=== PATIENT | male | born 1955 | race Caucasian/White ===

== ENCOUNTER 2022-08-22 14:31 | Inpatient (IN) ==
[2022-08-22] MEDS ORDERED: Naloxone 0.4 MG/ML INJ IVP PRN (17:41)
[2022-08-22] MEDS ORDERED: Melatonin 3 MG TABLET PO PRN (17:41)
[2022-08-22] MEDS ORDERED: Ondansetron ODT 4 MG TAB.RAPDIS SL PRN (17:41)
[2022-08-22] MEDS ORDERED: Acetaminophen 325 MG TABLET PO PRN (17:59)
[2022-08-22] MEDS ORDERED: Iopamidol - 370 500 ML MLS IVP ONE (18:07)
[2022-08-22] MEDS ORDERED: *HR* Heparin 5,000 UNIT/ML VIAL IVP PRN ×2 (18:57)
[2022-08-22] MEDS: Furosemide 40 MG/4 ML VIAL IVP SCH (20:10)
[2022-08-22] MEDS: Heparin 25,000UNIT/250ML 1/2NS 25,000 UNIT/250 ML IV.SOLN IVC SCH (20:11)
[2022-08-22 20:51] LABS: Basophils % 0.5 %; Eosinophils % 0.5 %; Hematocrit 47.3 % (37.5-50.1); Hemoglobin 15.6 g/dL (12.9-16.9); Immature Granulocytes % 0.2 % (0-4); Lymphocytes # 1.5 K/mcL (0.6-4.6); Lymphocytes % 16.9 %; Mean Corpuscular Hemoglobin 29.8 pg (28.0-33.3); Mean Corpuscular Volume 90.3 fL (83.0-100.0); Mean Platelet Volume 10.8 fL (9.4-12.4); Monocytes # 1.3 K/mcL (0.0-1.3); Monocytes % 15.5 %; Neutrophils # 5.7 K/mcL (1.6-8.9); Platelet Count 187 K/mcL (140-400); Red Blood Count 5.24 M/mcL (4.19-5.50); Red Cell Distribution Width 13.6 % (11.5-14.5); Segmented Neutrophils % 66.4 %; White Blood Count 8.6 K/mcL (4.3-11.1)
[2022-08-22 21:00] LABS: Heparin anti-factor XA UFH 0.05 IU/mL (0.30-0.70)
[2022-08-22 21:01] LABS: INR 1.2; Prothrombin Time 13.7 Seconds (9.4-12.1)
[2022-08-23 05:03] LABS: Basophils # 0.1 K/mcL (0.0-0.2); Basophils % 0.7 %; Eosinophils # 0.1 K/mcL (0.0-0.6); Eosinophils % 1.1 %; Hematocrit 48.6 % (37.5-50.1); Hemoglobin 15.6 g/dL (12.9-16.9); Immature Granulocytes % 0.1 % (0-4); Lymphocytes # 1.1 K/mcL (0.6-4.6); Lymphocytes % 14.6 %; Mean Corpuscular HGB Conc 32.1 g/dL (31.6-35.5); Mean Corpuscular Hemoglobin 29.3 pg (28.0-33.3); Mean Corpuscular Volume 91.4 fL (83.0-100.0); Mean Platelet Volume 10.5 fL (9.4-12.4); Monocytes # 1.1 K/mcL (0.0-1.3); Monocytes % 15.8 %; Neutrophils # 4.9 K/mcL (1.6-8.9); Platelet Count 183 K/mcL (140-400); Red Blood Count 5.32 M/mcL (4.19-5.50); Red Cell Distribution Width 13.8 % (11.5-14.5); Segmented Neutrophils % 67.7 %; White Blood Count 7.2 K/mcL (4.3-11.1)
[2022-08-23 05:05] LABS: Estimated Average Glucose 120 mg/dl; Hemoglobin A1C 5.8 %
[2022-08-23 05:25] LABS: Calcium 9.2 mg/dL (8.6-10.3); Chol/HDL Ratio 2.8 (0-4.9); Potassium 3.8 mEq/L (3.5-5.1)
[2022-08-23] MEDS: Furosemide 40 MG/4 ML VIAL IVP SCH ×2 (07:53→16:43)
[2022-08-23] MEDS ORDERED: Furosemide 40 MG/4 ML VIAL IVP ONE (10:38)
[2022-08-23] MEDS: Aspirin Enteric Coated 81 MG Tablet PO SCH (10:59)
[2022-08-23] MEDS ORDERED: *HR* FentaNYL (PF) 100 MCG/2 ML VIAL ONE (13:35)
[2022-08-23] MEDS ORDERED: *HR* Heparin 10,000 UNIT/10 ML VIAL ONE ×2 (13:36→13:43)
[2022-08-23] MEDS ORDERED: 0.9 % Sodium Chloride 2,000 ML ONE (13:36)
[2022-08-23] MEDS ORDERED: Heparin 1,000 UNITS/500 mL 500 ML ONE (13:36)
[2022-08-23] MEDS ORDERED: Nitroglycerin 1,000 MCG/5 ML VIAL IV ONE (13:36)
[2022-08-23] MEDS ORDERED: Iopamidol - 370 200 ML INFUS..BTL ONE (13:36)
[2022-08-23] MEDS ORDERED: *HR* Midazolam HCl 2 MG/2 ML VIAL ONE (13:36)
[2022-08-23] MEDS: Heparin 25,000UNIT/250ML 1/2NS 25,000 UNIT/250 ML IV.SOLN IVC SCH (18:45)
[2022-08-23 19:10] LABS: ABG Base Excess 9 mEq/L (-2 to 3); ABG HCO3 35 mEq/L (21-27); ABG Oxygen Saturation 88 % (95-98); ABG PCO2 51 mmHg (35-45); ABG PH 7.45 pH Units (7.32-7.45); ABG PO2 54 mmHg (85-104); ABG TCO2 37 mEq/L (20-26)
[2022-08-24 03:36] LABS: Basophils # 0.1 K/mcL (0.0-0.2); Basophils % 0.9 %; Eosinophils # 0.1 K/mcL (0.0-0.6); Eosinophils % 1.2 %; Hemoglobin 15.3 g/dL (12.9-16.9); Immature Granulocytes % 0.3 % (0-4); Lymphocytes # 1.5 K/mcL (0.6-4.6); Lymphocytes % 21.9 %; Mean Corpuscular HGB Conc 32.6 g/dL (31.6-35.5); Mean Corpuscular Hemoglobin 29.8 pg (28.0-33.3); Mean Corpuscular Volume 91.6 fL (83.0-100.0); Mean Platelet Volume 10.1 fL (9.4-12.4); Monocytes # 1.2 K/mcL (0.0-1.3); Monocytes % 17.3 %; Platelet Count 176 K/mcL (140-400); Red Blood Count 5.13 M/mcL (4.19-5.50); Red Cell Distribution Width 13.8 % (11.5-14.5); Segmented Neutrophils % 58.4 %; White Blood Count 6.9 K/mcL (4.3-11.1)
[2022-08-24 04:14] LABS: Potassium 4.1 mEq/L (3.5-5.1)
[2022-08-24] MEDS ORDERED: Metoprolol XL (24 HR) Succ 25 MG TAB.ER.24H PO SCH (09:00)
[2022-08-24] MEDS: Aspirin Enteric Coated 81 MG Tablet PO SCH (09:23)
[2022-08-24] MEDS: Furosemide 40 MG/4 ML VIAL IVP SCH ×2 (09:24→18:59)
[2022-08-24] MEDS: Metoprolol XL (24 HR) Succ 25 MG TAB.ER.24H PO SCH (21:17)
[2022-08-25] MEDS: Heparin 25,000UNIT/250ML 1/2NS 25,000 UNIT/250 ML IV.SOLN IVC SCH ×2 (02:34→20:01)
[2022-08-25 03:38] LABS: Basophils # 0.1 K/mcL (0.0-0.2); Basophils % 0.7 %; Eosinophils # 0.1 K/mcL (0.0-0.6); Eosinophils % 1.9 %; Hematocrit 46.8 % (37.5-50.1); Immature Granulocytes % 0.3 % (0-4); Lymphocytes # 1.4 K/mcL (0.6-4.6); Lymphocytes % 20.3 %; Mean Corpuscular HGB Conc 32.1 g/dL (31.6-35.5); Mean Corpuscular Hemoglobin 29.7 pg (28.0-33.3); Mean Corpuscular Volume 92.7 fL (83.0-100.0); Mean Platelet Volume 10.9 fL (9.4-12.4); Monocytes # 1.3 K/mcL (0.0-1.3); Monocytes % 18.4 %; Platelet Count 179 K/mcL (140-400); Red Blood Count 5.05 M/mcL (4.19-5.50); Red Cell Distribution Width 13.7 % (11.5-14.5); Segmented Neutrophils % 58.4 %; White Blood Count 6.8 K/mcL (4.3-11.1)
[2022-08-25 04:00] LABS: Potassium 3.4 mEq/L (3.5-5.1)
[2022-08-25] MEDS: Metoprolol XL (24 HR) Succ 25 MG TAB.ER.24H PO SCH ×2 (08:54→20:00)
[2022-08-25] MEDS: Aspirin Enteric Coated 81 MG Tablet PO SCH (08:55)
[2022-08-25] MEDS: Nicotine 21 MG PATCH.TD24 TD SCH (08:57)
[2022-08-25] MEDS: Furosemide 40 MG/4 ML VIAL IVP SCH (08:57)
[2022-08-25] MEDS: Budesonide Neb 0.5 MG/2 ML IH SCH ×2 (11:34→20:24)
[2022-08-25] MEDS ORDERED: acetaZOLAMIDE 250 MG in Water for inj. (sterile) 2.5 ML IVP ONE (12:00)
[2022-08-26 01:24] LABS: Hematocrit 47.2 % (37.5-50.1); Hemoglobin 15.1 g/dL (12.9-16.9); Mean Corpuscular Hemoglobin 29.7 pg (28.0-33.3); Mean Corpuscular Volume 92.9 fL (83.0-100.0); Mean Platelet Volume 10.5 fL (9.4-12.4); Platelet Count 149 K/mcL (140-400); Red Blood Count 5.08 M/mcL (4.19-5.50); Red Cell Distribution Width 13.8 % (11.5-14.5); White Blood Count 6.3 K/mcL (4.3-11.1)
[2022-08-26 01:44] LABS: Calcium 8.9 mg/dL (8.6-10.3); Potassium 3.9 mEq/L (3.5-5.1)
[2022-08-26 02:09] LABS: Eosinophils # 0.3 K/mcL (0.0-0.6); Lymphocytes # 1.5 K/mcL (0.6-4.6); Monocytes # 0.8 K/mcL (0.0-1.3); Neutrophils # 3.8 K/mcL (1.6-8.9)
[2022-08-26 02:10] LABS: Platelet Estimate Normal (Normal)
[2022-08-26] MEDS ORDERED: acetaZOLAMIDE 250 MG in Water for inj. (sterile) 2.5 ML IVP ONE (09:24)
[2022-08-26] MEDS: Metoprolol XL (24 HR) Succ 25 MG TAB.ER.24H PO SCH ×2 (09:58→20:15)
[2022-08-26] MEDS: predniSONE 20 MG TABLET PO SCH (09:58)
[2022-08-26] MEDS: Aspirin Enteric Coated 81 MG Tablet PO SCH (09:58)
[2022-08-26] MEDS: Potassium Chloride Elixir 20 MEQ/15 ML UDC PO SCH (09:58)
[2022-08-26] MEDS: Nicotine 21 MG PATCH.TD24 TD SCH (09:58)
[2022-08-26] MEDS: Budesonide Neb 0.5 MG/2 ML IH SCH ×2 (10:32→22:43)
[2022-08-26] MEDS: Heparin 25,000UNIT/250ML 1/2NS 25,000 UNIT/250 ML IV.SOLN IVC SCH (17:16)
[2022-08-27 02:10] LABS: Basophils % 0.3 %; Eosinophils % 0.2 %; Hemoglobin 14.4 g/dL (12.9-16.9); Immature Granulocytes % 0.2 % (0-4); Lymphocytes # 0.9 K/mcL (0.6-4.6); Lymphocytes % 14.5 %; Mean Corpuscular HGB Conc 31.3 g/dL (31.6-35.5); Mean Corpuscular Hemoglobin 29.4 pg (28.0-33.3); Mean Corpuscular Volume 94.1 fL (83.0-100.0); Monocytes # 0.8 K/mcL (0.0-1.3); Neutrophils # 4.7 K/mcL (1.6-8.9); Platelet Count 155 K/mcL (140-400); Red Blood Count 4.89 M/mcL (4.19-5.50); Red Cell Distribution Width 13.4 % (11.5-14.5); Segmented Neutrophils % 72.8 %; White Blood Count 6.5 K/mcL (4.3-11.1)
[2022-08-27 02:29] LABS: Calcium 9.2 mg/dL (8.6-10.3); Potassium 4.1 mEq/L (3.5-5.1)
[2022-08-27] MEDS: Budesonide Neb 0.5 MG/2 ML IH SCH ×2 (07:31→22:57)
[2022-08-27] MEDS ORDERED: Lidocaine Viscous Oral Soln 15 ML SOLUTION MM PRN (09:35)
[2022-08-27] MEDS ORDERED: 0.9 % Sodium Chloride 500 ML IVC ONE (09:36)
[2022-08-27] MEDS: Potassium Chloride Elixir 20 MEQ/15 ML UDC PO SCH (09:40)
[2022-08-27] MEDS: *HR* Midazolam HCl 5 MG/5 ML VIAL IVP PRN ×2 (10:20→10:25)
[2022-08-27] MEDS: *HR* FentaNYL (PF) 100 MCG/2 ML VIAL IVP PRN ×2 (10:20→10:25)
[2022-08-27] MEDS: Aspirin Enteric Coated 81 MG Tablet PO SCH (11:43)
[2022-08-27] MEDS: predniSONE 20 MG TABLET PO SCH (11:44)
[2022-08-27] MEDS: Nicotine 21 MG PATCH.TD24 TD SCH (11:44)
[2022-08-27] MEDS: Metoprolol XL (24 HR) Succ 25 MG TAB.ER.24H PO SCH ×2 (11:49→16:58)
[2022-08-27] MEDS: Heparin 25,000UNIT/250ML 1/2NS 25,000 UNIT/250 ML IV.SOLN IVC SCH (11:51)
[2022-08-27] MEDS: Furosemide 20 MG/2 ML VIAL IVP SCH ×2 (11:54→16:59)
[2022-08-27 12:24] LABS: Chol/HDL Ratio 2.8 (0-4.9)
[2022-08-27 15:08] LABS: Bacteria,Urine Few per hpf (None-Few); Bilirubin,Urine Negative (Negative); Blood,Urine Negative (Negative); Clarity,Urine Turbid (Clear); Color,Urine Light-Yellow (Yellow); Glucose,Urine (UA) Normal (Normal); Ketones,Urine Negative (Negative); Leukocyte Esterase,Urine Trace (Negative); Mucus,Urine Few per lpf (None-Few); Nitrite,Urine Positive (Negative); Protein,Urine 30 mg/dL (Neg-Trace); RBC,Urine 0-3 per hpf (0-3); Specific Gravity,Urine 1.011 (1.010-1.025); Sperm,Urine Present per hpf (None Seen); Urobilinogen,Urine Normal (Normal)
[2022-08-27 17:20] LABS: INR 1.1; Prothrombin Time 12.5 Seconds (9.4-12.1)
[2022-08-27 17:22] LABS: Activated Partial Thrombo Time 74.2 Seconds (26.0-36.0)
[2022-08-27 17:33] LABS: Chol/HDL Ratio 2.8 (0-4.9)
[2022-08-27] MEDS: Chlorhexidine Rinse 15 ML MOUTHWASH MM SCH (20:35)
[2022-08-28 03:18] LABS: Basophils % 0.3 %; Hematocrit 44.4 % (37.5-50.1); Hemoglobin 14.1 g/dL (12.9-16.9); Immature Granulocytes % 0.3 % (0-4); Lymphocytes # 1.1 K/mcL (0.6-4.6); Lymphocytes % 15.1 %; Mean Corpuscular HGB Conc 31.8 g/dL (31.6-35.5); Mean Corpuscular Hemoglobin 29.5 pg (28.0-33.3); Mean Corpuscular Volume 92.9 fL (83.0-100.0); Mean Platelet Volume 11.1 fL (9.4-12.4); Monocytes # 0.8 K/mcL (0.0-1.3); Monocytes % 10.9 %; Neutrophils # 5.1 K/mcL (1.6-8.9); Platelet Count 143 K/mcL (140-400); Red Blood Count 4.78 M/mcL (4.19-5.50); Red Cell Distribution Width 13.7 % (11.5-14.5); Segmented Neutrophils % 73.4 %
[2022-08-28 03:26] LABS: Calcium 9.1 mg/dL (8.6-10.3); Magnesium 1.9 mg/dL (1.6-2.6); Potassium 3.9 mEq/L (3.5-5.1)
[2022-08-28] MEDS: Heparin 25,000UNIT/250ML 1/2NS 25,000 UNIT/250 ML IV.SOLN IVC SCH (05:44)
[2022-08-28] MEDS ORDERED: Aspirin 81 MG TAB.CHEW PO ONE ×2 (06:00→18:00)
[2022-08-28] MEDS ORDERED: *HR* Vasopressin 20 UNIT/ML VIAL ONE (06:46)
[2022-08-28] MEDS ORDERED: DOBUTamine 1,000 MG/250 ML BAG ONE (06:46)
[2022-08-28] MEDS ORDERED: NiCARdipine 2.5 MG/10 ML Syringe IVPB ONE (06:46)
[2022-08-28] MEDS: Aspirin Enteric Coated 81 MG Tablet PO SCH (09:34)
[2022-08-28] MEDS: Nicotine 21 MG PATCH.TD24 TD SCH (09:35)
[2022-08-28] MEDS: Potassium Chloride Elixir 20 MEQ/15 ML UDC PO SCH (09:37)
[2022-08-28] MEDS: Metoprolol XL (24 HR) Succ 25 MG TAB.ER.24H PO SCH ×2 (09:37→16:00)
[2022-08-28] MEDS: predniSONE 20 MG TABLET PO SCH (09:37)
[2022-08-28] MEDS: Chlorhexidine Rinse 15 ML MOUTHWASH MM SCH ×2 (09:41→20:26)
[2022-08-28] MEDS: Furosemide 20 MG/2 ML VIAL IVP SCH ×2 (09:41→16:00)
[2022-08-28] MEDS: Budesonide Neb 0.5 MG/2 ML IH SCH ×2 (10:18→19:55)
[2022-08-28] MEDS ORDERED: *HR* FentaNYL (PF) 1,000 MCG/20 ML VIAL ONE (11:26)
[2022-08-28] MEDS ORDERED: *HR* Propofol 200 MG/20 ML VIAL IVP ONE (11:26)
[2022-08-28] MEDS ORDERED: *HR* Midazolam HCl 5 MG/5 ML VIAL IVP ONE (11:26)
[2022-08-28] MEDS ORDERED: Tranexamic Acid 1,000 MG/10 ML VIAL ONE (11:28)
[2022-08-28] MEDS ORDERED: *HR* Rocuronium Bromide 50 MG/5 ML VIAL ONE ×3 (11:28→15:37)
[2022-08-28] MEDS ORDERED: Famotidine 20 MG/2 ML VIAL ONE (11:28)
[2022-08-28] MEDS ORDERED: Lidocaine 2% Syringe 100 MG/5 ML ONE (11:28)
[2022-08-28] MEDS ORDERED: *HR* Magnesium Sulfate 1 GM/2 ML VIAL ONE (11:28)
[2022-08-28] MEDS ORDERED: Heparin 15,000 UNIT in 0.9 % Sodium Chloride 500 ML IR ONE (11:30)
[2022-08-28] MEDS ORDERED: Norepinephrine 4 MG in 0.9 % Sodium Chloride 250 ML IVC PRN (11:30)
[2022-08-28] MEDS ORDERED: del Nido Cardioplegia Solution PF ONE ×2 (11:30)
[2022-08-28] MEDS ORDERED: Buckersberg's Blood Cardioplegia PF ONE (11:30)
[2022-08-28] MEDS ORDERED: Papaverine 60 MG/2 ML VIAL IVP ONE (11:41)
[2022-08-28] MEDS ORDERED: Dexmedetomidine HCl 400 MCG/100 ML MLS IVC ONE (12:35)
[2022-08-28 12:59] LABS: ABG Base Excess 3 mEq/L (-2 to 3); ABG Chloride 94 mEq/L (98-107); ABG Glucose 95 mg/dL (60-95); ABG HCO3 32 mEq/L (21-27); ABG Ionized Calcium 1.23 mmol/L (1.15-1.35); ABG Oxygen Saturation 100 % (95-98); ABG PCO2 63 mmHg (35-45); ABG PH 7.32 pH Units (7.32-7.45); ABG PO2 278 mmHg (85-104); ABG TCO2 34 mEq/L (20-26)
[2022-08-28] MEDS ORDERED: Lidocaine Jelly 11 ml Syringe ONE (13:01)
[2022-08-28] MEDS: CeFAZolin Syr 2,000MG/20 ML 2,000 MG/20 ML SYRINGE IVPB ONE ×2 (13:28→17:20)
[2022-08-28] MEDS ORDERED: Albumin Human 5% 12.5 GM/250 ML IV.SOLN ONE (13:39)
[2022-08-28] MEDS ORDERED: *HR* FentaNYL (PF) 250 MCG/5 ML VIAL ONE (14:26)
[2022-08-28] MEDS ORDERED: Calcium Gluconate 1gm/50mL 1 GM/50 ML BAG IVPB PRN (14:31)
[2022-08-28] MEDS ORDERED: Potassium Chloride 40 MEQ/200 ML BAG IVPB PRN (14:31)
[2022-08-28] MEDS ORDERED: Insulin Regular, Human 100 UNIT/ML IV PRN (14:31)
[2022-08-28] MEDS ORDERED: *HR* Dextrose 50 % in Water (Syg) 50 ML SYRINGE IVP PRN (14:31)
[2022-08-28] MEDS ORDERED: *HR* FentaNYL (PF) 100 MCG/2 ML VIAL IVP PRN (14:31)
[2022-08-28] MEDS ORDERED: Albuterol 2.5 MG/3 ML NEBULIZER IH PRN (14:31)
[2022-08-28] MEDS ORDERED: Ondansetron 4 MG/2 ML VIAL IVP PRN (14:31)
[2022-08-28 14:58] LABS: ABG Base Excess 5 mEq/L (-2 to 3); ABG Chloride 95 mEq/L (98-107); ABG Glucose 112 mg/dL (60-95); ABG HCO3 30 mEq/L (21-27); ABG Ionized Calcium 1.12 mmol/L (1.15-1.35); ABG Oxygen Saturation 99 % (95-98); ABG PCO2 44 mmHg (35-45); ABG PH 7.44 pH Units (7.32-7.45); ABG PO2 130 mmHg (85-104); ABG TCO2 31 mEq/L (20-26)
[2022-08-28] MEDS: Ipratropium/Albuterol Neb 3 ML IH SCH ×3 (15:29→23:47)
[2022-08-28 15:39] LABS: ABG Base Excess 5 mEq/L (-2 to 3); ABG Chloride 95 mEq/L (98-107); ABG Glucose 136 mg/dL (60-95); ABG HCO3 29 mEq/L (21-27); ABG Ionized Calcium 1.09 mmol/L (1.15-1.35); ABG Oxygen Saturation 100 % (95-98); ABG PCO2 43 mmHg (35-45); ABG PH 7.45 pH Units (7.32-7.45); ABG PO2 259 mmHg (85-104); ABG TCO2 31 mEq/L (20-26)
[2022-08-28 16:18] LABS: ABG Base Excess 4 mEq/L (-2 to 3); ABG Chloride 95 mEq/L (98-107); ABG Glucose 147 mg/dL (60-95); ABG HCO3 29 mEq/L (21-27); ABG Ionized Calcium 1.13 mmol/L (1.15-1.35); ABG Oxygen Saturation 100 % (95-98); ABG PCO2 42 mmHg (35-45); ABG PH 7.44 pH Units (7.32-7.45); ABG PO2 450 mmHg (85-104); ABG TCO2 30 mEq/L (20-26)
[2022-08-28] MEDS ORDERED: niCARdipine 20 MG/200 ML MLS IVC ONE (16:19)
[2022-08-28 16:50] LABS: ABG Base Excess 3 mEq/L (-2 to 3); ABG Chloride 94 mEq/L (98-107); ABG Glucose 158 mg/dL (60-95); ABG HCO3 29 mEq/L (21-27); ABG Oxygen Saturation 100 % (95-98); ABG PCO2 44 mmHg (35-45); ABG PH 7.42 pH Units (7.32-7.45); ABG PO2 476 mmHg (85-104); ABG TCO2 30 mEq/L (20-26)
[2022-08-28] MEDS ORDERED: Protamine Sulfate 250 MG/25 ML VIAL IVP ONE (16:51)
[2022-08-28] MEDS ORDERED: Protamine Sulfate 50 MG/5 ML VIAL IVP ONE (16:51)
[2022-08-28 17:33] LABS: ABG Base Excess 3 mEq/L (-2 to 3); ABG Chloride 96 mEq/L (98-107); ABG Glucose 159 mg/dL (60-95); ABG HCO3 27 mEq/L (21-27); ABG Ionized Calcium 1.19 mmol/L (1.15-1.35); ABG Oxygen Saturation 100 % (95-98); ABG PCO2 42 mmHg (35-45); ABG PH 7.42 pH Units (7.32-7.45); ABG PO2 432 mmHg (85-104); ABG TCO2 29 mEq/L (20-26)
[2022-08-28] MEDS: DOBUTamine 1,000 MG/250 ML BAG IVC SCH (18:03)
[2022-08-28 18:20] LABS: ABG Base Excess 4 mEq/L (-2 to 3); ABG HCO3 32 mEq/L (21-27); ABG Oxygen Saturation 97 % (95-98); ABG PCO2 58 mmHg (35-45); ABG PH 7.34 pH Units (7.32-7.45); ABG PO2 99 mmHg (85-104); ABG TCO2 33 mEq/L (20-26); Blood Gas Modality AF; Blood Gas VT 500 cc
[2022-08-28] MEDS: Albumin Human 5% 12.5 GM/250 ML IV.SOLN IVPB PRN ×2 (18:30→18:57)
[2022-08-28 18:35] LABS: Basophils % 0.3 %; Eosinophils % 0.1 %; Mean Corpuscular HGB Conc 31.9 g/dL (31.6-35.5)
[2022-08-28 18:37] LABS: Hematocrit 43.6 % (37.5-50.1); Hemoglobin 13.9 g/dL (12.9-16.9); Immature Granulocytes % 0.7 % (0-4); Immature Platelets 9.9 % (1.1-6.1); Lymphocytes # 0.9 K/mcL (0.6-4.6); Lymphocytes % 6.2 %; Mean Corpuscular Hemoglobin 29.6 pg (28.0-33.3); Mean Corpuscular Volume 92.8 fL (83.0-100.0); Mean Platelet Volume 10.7 fL (9.4-12.4); Monocytes # 0.7 K/mcL (0.0-1.3); Monocytes % 4.9 %; Neutrophils # 13.1 K/mcL (1.6-8.9); Platelet Count 104 K/mcL (140-400); Red Cell Distribution Width 13.4 % (11.5-14.5); Segmented Neutrophils % 87.8 %; White Blood Count 14.9 K/mcL (4.3-11.1)
[2022-08-28 18:43] LABS: INR 1.4; Prothrombin Time 16.1 Seconds (9.4-12.1)
[2022-08-28 18:46] LABS: BUN/Creatinine Ratio 17 (6-26); Blood Urea Nitrogen 15 mg/dL (8-23); Calcium 8.8 mg/dL (8.6-10.3); Carbon Dioxide 32 mEq/L (23-29); Chloride 96 mEq/L (98-107); Glucose 178 mg/dL (70-105); Magnesium 1.6 mg/dL (1.6-2.6); Osmolality,Calculated 285 (280-300); Potassium 3.1 mEq/L (3.5-5.1); Sodium 135 mEq/L (136-145)
[2022-08-28 18:48] LABS: Activated Partial Thrombo Time 31.5 Seconds (26.0-36.0)
[2022-08-28] MEDS: Dexmedetomidine HCl 400 MCG/100 ML MLS IVC SCH ×2 (19:00→21:22)
[2022-08-28] MEDS: Pantoprazole 40 MG VIAL IVP SCH (19:35)
[2022-08-28] MEDS: Norepinephrine 4 MG/254 ML IV.SOLN IVC SCH ×2 (19:35→23:42)
[2022-08-28] MEDS: niCARdipine 20 MG/200 ML MLS IVC SCH ×2 (19:35→21:35)
[2022-08-28] MEDS: FentaNYL (PF) 1,000 MCG/100 ML IV.SOLN IVC SCH (21:19)
[2022-08-28] MEDS: CeFAZolin 2 GM/120 ML BAG IVPB SCH (21:23)
[2022-08-28 23:09] LABS: ABG Base Excess 4 mEq/L (-2 to 3); ABG HCO3 33 mEq/L (21-27); ABG Oxygen Saturation 95 % (95-98); ABG PCO2 67 mmHg (35-45); ABG PO2 86 mmHg (85-104); ABG TCO2 35 mEq/L (20-26); Blood Gas Modality AF; Blood Gas VT 500 cc
[2022-08-29] MEDS: Dexmedetomidine HCl 400 MCG/100 ML MLS IVC SCH ×4 (00:26→08:54)
[2022-08-29] MEDS: Albumin Human 5% 12.5 GM/250 ML IV.SOLN IVPB PRN ×2 (02:06→03:16)
[2022-08-29 02:24] LABS: ABG Base Excess 3 mEq/L (-2 to 3); ABG HCO3 31 mEq/L (21-27); ABG Oxygen Saturation 96 % (95-98); ABG PCO2 56 mmHg (35-45); ABG PH 7.34 pH Units (7.32-7.45); ABG PO2 90 mmHg (85-104); ABG TCO2 32 mEq/L (20-26); Blood Gas Modality AF; Blood Gas VT 500 cc
[2022-08-29] MEDS: Ipratropium/Albuterol Neb 3 ML IH SCH ×6 (03:12→23:30)
[2022-08-29] MEDS: niCARdipine 20 MG/200 ML MLS IVC SCH ×5 (03:17→17:49)
[2022-08-29 04:15] LABS: Basophils % 0.1 %; Hemoglobin 12.7 g/dL (12.9-16.9); Red Cell Distribution Width 13.6 % (11.5-14.5)
[2022-08-29] MEDS: FentaNYL (PF) 1,000 MCG/100 ML IV.SOLN IVC SCH (04:16)
[2022-08-29 04:17] LABS: Hematocrit 38.8 % (37.5-50.1); Immature Granulocytes % 0.2 % (0-4); Immature Platelets 10.4 % (1.1-6.1); Lymphocytes # 0.6 K/mcL (0.6-4.6); Lymphocytes % 4.2 %; Mean Corpuscular HGB Conc 32.7 g/dL (31.6-35.5); Mean Corpuscular Volume 91.5 fL (83.0-100.0); Mean Platelet Volume 11.4 fL (9.4-12.4); Monocytes # 1.3 K/mcL (0.0-1.3); Monocytes % 9.7 %; Neutrophils # 11.7 K/mcL (1.6-8.9); Platelet Count 107 K/mcL (140-400); Red Blood Count 4.24 M/mcL (4.19-5.50); Segmented Neutrophils % 85.8 %; White Blood Count 13.6 K/mcL (4.3-11.1)
[2022-08-29 04:23] LABS: Heparin anti-factor XA UFH < 0.04 IU/mL (0.30-0.70); INR 1.1; Prothrombin Time 12.7 Seconds (9.4-12.1)
[2022-08-29 04:25] LABS: Activated Partial Thrombo Time 29.4 Seconds (26.0-36.0)
[2022-08-29 04:43] LABS: BUN/Creatinine Ratio 17 (6-26); Blood Urea Nitrogen 15 mg/dL (8-23); Calcium 8.7 mg/dL (8.6-10.3); Carbon Dioxide 30 mEq/L (23-29); Chloride 98 mEq/L (98-107); Glucose 143 mg/dL (70-105); Magnesium 1.7 mg/dL (1.6-2.6); Osmolality,Calculated 281 (280-300); Potassium 4.1 mEq/L (3.5-5.1); Sodium 134 mEq/L (136-145)
[2022-08-29] MEDS: CeFAZolin 2 GM/120 ML BAG IVPB SCH ×3 (05:28→21:02)
[2022-08-29 05:29] LABS: ABG Base Excess 4 mEq/L (-2 to 3); ABG HCO3 31 mEq/L (21-27); ABG Oxygen Saturation 97 % (95-98); ABG PCO2 54 mmHg (35-45); ABG PH 7.36 pH Units (7.32-7.45); ABG PO2 98 mmHg (85-104); ABG TCO2 32 mEq/L (20-26); Blood Gas Modality AF; Blood Gas VT 500 cc
[2022-08-29] MEDS: *HR* Enoxaparin 40 MG/0.4 ML SYRINGE SQ SCH (05:33)
[2022-08-29] MEDS: Metoprolol XL (24 HR) Succ 25 MG TAB.ER.24H PO SCH (07:16)
[2022-08-29] MEDS: Nicotine 21 MG PATCH.TD24 TD SCH (07:16)
[2022-08-29] MEDS: Budesonide Neb 0.5 MG/2 ML IH SCH ×2 (07:24→20:50)
[2022-08-29] MEDS: Potassium Chloride Elixir 20 MEQ/15 ML UDC PO SCH (08:03)
[2022-08-29] MEDS: Pantoprazole 40 MG VIAL IVP SCH (08:03)
[2022-08-29] MEDS: Chlorhexidine Rinse 15 ML MOUTHWASH MM SCH ×2 (08:03→21:00)
[2022-08-29] MEDS: Furosemide 20 MG/2 ML VIAL IVP SCH ×2 (08:04→15:27)
[2022-08-29] MEDS: *HR* OxyCODONE/APAP 5/325 TABLET PO PRN ×3 (08:04→21:04)
[2022-08-29] MEDS: predniSONE 20 MG TABLET PO SCH (08:04)
[2022-08-29] MEDS: Aspirin 81 MG TAB.CHEW PO SCH (08:05)
[2022-08-29] MEDS ORDERED: Docusate Oral Soln 100 MG/10 ML UDC GTUBE SCH (09:00)
[2022-08-29 10:19] LABS: ABG Base Excess 4 mEq/L (-2 to 3); ABG HCO3 32 mEq/L (21-27); ABG Oxygen Saturation 98 % (95-98); ABG PCO2 58 mmHg (35-45); ABG PH 7.35 pH Units (7.32-7.45); ABG PO2 106 mmHg (85-104); ABG TCO2 34 mEq/L (20-26); Blood Gas Modality CPAP/PS; Blood Gas Pressure Support 7 cm H2O
[2022-08-29 11:22] LABS: ABG Base Excess 4 mEq/L (-2 to 3); ABG HCO3 32 mEq/L (21-27); ABG Oxygen Saturation 93 % (95-98); ABG PCO2 59 mmHg (35-45); ABG PH 7.34 pH Units (7.32-7.45); ABG PO2 74 mmHg (85-104); ABG TCO2 34 mEq/L (20-26)
[2022-08-29] MEDS: Norepinephrine 4 MG/254 ML IV.SOLN IVC SCH ×2 (12:01→15:15)
[2022-08-29] MEDS ORDERED: Dextrose Gel 15 GM/37.5 ML TUBE PO PRN ×2 (14:33)
[2022-08-29] MEDS ORDERED: D5% in Water 1,000 ML IVC PRN (14:33)
[2022-08-29] MEDS ORDERED: *HR* Dextrose 50 % in Water (Syg) 50 ML SYRINGE IVP PRN (14:33)
[2022-08-29] MEDS: DOBUTamine 1,000 MG/250 ML BAG IVC SCH (16:21)
[2022-08-29] MEDS: Insulin LISPRO 300 UNITS/3 ML VIAL SUBQ SCH ×2 (16:21→21:00)
[2022-08-30] MEDS: Ipratropium/Albuterol Neb 3 ML IH SCH ×5 (04:20→20:56)
[2022-08-30] MEDS: *HR* OxyCODONE/APAP 5/325 TABLET PO PRN (05:00)
[2022-08-30] MEDS: CeFAZolin 2 GM/120 ML BAG IVPB SCH ×2 (05:20→13:19)
[2022-08-30] MEDS: *HR* Enoxaparin 40 MG/0.4 ML SYRINGE SQ SCH (05:20)
[2022-08-30] MEDS: niCARdipine 20 MG/200 ML MLS IVC SCH ×4 (05:26→19:45)
[2022-08-30 07:06] LABS: Potassium 4.2 mEq/L (3.5-5.1)
[2022-08-30 07:07] LABS: Calcium 8.7 mg/dL (8.6-10.3)
[2022-08-30] MEDS ORDERED: DilTIAZem 50 MG/50 ML IV.SOLN IVC SCH (07:30)
[2022-08-30 07:47] LABS: Mean Platelet Volume 12.2 fL (9.4-12.4)
[2022-08-30 07:49] LABS: Basophils % 0.2 %; Hemoglobin 12.3 g/dL (12.9-16.9); Immature Granulocytes % 0.5 % (0-4); Immature Platelets 11.4 % (1.1-6.1); Lymphocytes % 6.1 %; Mean Corpuscular HGB Conc 32.4 g/dL (31.6-35.5); Mean Corpuscular Hemoglobin 29.7 pg (28.0-33.3); Mean Corpuscular Volume 91.8 fL (83.0-100.0); Monocytes # 2.2 K/mcL (0.0-1.3); Monocytes % 13.5 %; Neutrophils # 12.8 K/mcL (1.6-8.9); Platelet Count 104 K/mcL (140-400); Red Blood Count 4.14 M/mcL (4.19-5.50); Segmented Neutrophils % 79.7 %
[2022-08-30] MEDS: Furosemide 20 MG/2 ML VIAL IVP SCH ×2 (08:08→17:48)
[2022-08-30] MEDS: Pantoprazole 40 MG VIAL IVP SCH (08:09)
[2022-08-30] MEDS: predniSONE 20 MG TABLET PO SCH (08:09)
[2022-08-30] MEDS: Chlorhexidine Rinse 15 ML MOUTHWASH MM SCH ×2 (08:09→19:56)
[2022-08-30] MEDS: Aspirin 81 MG TAB.CHEW PO SCH (08:09)
[2022-08-30] MEDS: Nicotine 21 MG PATCH.TD24 TD SCH (08:13)
[2022-08-30] MEDS: Insulin LISPRO 300 UNITS/3 ML VIAL SUBQ SCH ×4 (08:39→20:09)
[2022-08-30] MEDS ORDERED: *HR* Metoprolol 5 MG/5 ML VIAL IVP ONE (09:19)
[2022-08-30] MEDS ORDERED: Amiodarone Premix 150 MG/100 ML BAG IVPB ONE ×2 (09:22→09:24)
[2022-08-30] MEDS ORDERED: Amiodarone Premix 360 MG/200 ML BAG IVC ONE ×2 (09:22→09:24)
[2022-08-30] MEDS: Budesonide Neb 0.5 MG/2 ML IH SCH ×2 (11:21→20:56)
[2022-08-30] MEDS ORDERED: Albumin Human 5% 12.5 GM/250 ML IV.SOLN IVPB ONE ×2 (15:13→18:33)
[2022-08-30] MEDS ORDERED: Albumin Human 5% 12.5 GM/250 ML IV.SOLN ONE (15:13)
[2022-08-30] MEDS: Amiodarone Premix 360 MG/200 ML BAG IVC SCH (15:22)
[2022-08-30] MEDS: DOBUTamine 1,000 MG/250 ML BAG IVC SCH (18:34)
[2022-08-30] MEDS: Norepinephrine 4 MG/254 ML IV.SOLN IVC SCH (19:44)
[2022-08-30] MEDS: Metoprolol XL (24 HR) Succ 25 MG TAB.ER.24H PO SCH (19:56)
[2022-08-31] MEDS: Ipratropium/Albuterol Neb 3 ML IH SCH ×6 (00:12→19:50)
[2022-08-31] MEDS: Budesonide Neb 0.5 MG/2 ML IH SCH ×4 (00:14→19:50)
[2022-08-31] MEDS: Norepinephrine 4 MG/254 ML IV.SOLN IVC SCH (01:49)
[2022-08-31] MEDS: Amiodarone Premix 360 MG/200 ML BAG IVC SCH ×3 (01:50→23:36)
[2022-08-31] MEDS: niCARdipine 20 MG/200 ML MLS IVC SCH ×2 (03:35→06:46)
[2022-08-31 04:18] LABS: Basophils % 0.1 %; Hematocrit 36.4 % (37.5-50.1); Hemoglobin 11.4 g/dL (12.9-16.9); Immature Granulocytes % 0.8 % (0-4); Immature Platelets 13.9 % (1.1-6.1); Lymphocytes # 0.7 K/mcL (0.6-4.6); Lymphocytes % 3.8 %; Mean Corpuscular HGB Conc 31.3 g/dL (31.6-35.5); Mean Corpuscular Hemoglobin 29.9 pg (28.0-33.3); Mean Corpuscular Volume 95.5 fL (83.0-100.0); Mean Platelet Volume 11.8 fL (9.4-12.4); Monocytes # 1.9 K/mcL (0.0-1.3); Monocytes % 10.3 %; Neutrophils # 15.7 K/mcL (1.6-8.9); Platelet Count 98 K/mcL (140-400); Red Blood Count 3.81 M/mcL (4.19-5.50); Red Cell Distribution Width 14.3 % (11.5-14.5); White Blood Count 18.5 K/mcL (4.3-11.1)
[2022-08-31 04:27] LABS: Calcium 9.4 mg/dL (8.6-10.3); Magnesium 2.1 mg/dL (1.6-2.6); Potassium 4.5 mEq/L (3.5-5.1)
[2022-08-31] MEDS: *HR* Enoxaparin 40 MG/0.4 ML SYRINGE SQ SCH (06:46)
[2022-08-31] MEDS: Insulin LISPRO 300 UNITS/3 ML VIAL SUBQ SCH ×4 (08:24→21:13)
[2022-08-31] MEDS: Aspirin 81 MG TAB.CHEW PO SCH (08:38)
[2022-08-31] MEDS: Chlorhexidine Rinse 15 ML MOUTHWASH MM SCH ×2 (08:38→20:05)
[2022-08-31] MEDS: predniSONE 20 MG TABLET PO SCH (08:38)
[2022-08-31] MEDS: Nicotine 21 MG PATCH.TD24 TD SCH (08:39)
[2022-08-31] MEDS: Pantoprazole 40 MG VIAL IVP SCH (08:39)
[2022-08-31] MEDS: Furosemide 20 MG/2 ML VIAL IVP SCH ×2 (08:39→17:39)
[2022-08-31] MEDS: Metoprolol XL (24 HR) Succ 25 MG TAB.ER.24H PO SCH ×2 (08:39→20:05)
[2022-08-31] MEDS ORDERED: Acetaminophen 325 MG TABLET PO PRN (09:39)
[2022-08-31] MEDS ORDERED: Potassium Chloride 40 MEQ/200 ML BAG IVPB PRN (09:39)
[2022-08-31] MEDS ORDERED: Naloxone 0.4 MG/ML INJ IVP PRN (09:39)
[2022-08-31] MEDS ORDERED: Albuterol 2.5 MG/3 ML NEBULIZER IH PRN (09:39)
[2022-08-31] MEDS ORDERED: D5% in Water 1,000 ML IVC PRN (09:39)
[2022-08-31] MEDS ORDERED: Ondansetron 4 MG/2 ML VIAL IVP PRN (09:39)
[2022-08-31] MEDS ORDERED: Melatonin 3 MG TABLET PO PRN (09:39)
[2022-08-31] MEDS ORDERED: *HR* Dextrose 50 % in Water (Syg) 50 ML SYRINGE IVP PRN (09:39)
[2022-08-31] MEDS ORDERED: Dextrose Gel 15 GM/37.5 ML TUBE PO PRN ×2 (09:39)
[2022-09-01] MEDS: Ipratropium/Albuterol Neb 3 ML IH SCH ×6 (00:06→19:59)
[2022-09-01 03:31] LABS: Calcium 9.8 mg/dL (8.6-10.3); Magnesium 2.2 mg/dL (1.6-2.6); Potassium 4.6 mEq/L (3.5-5.1)
[2022-09-01] MEDS: *HR* Enoxaparin 40 MG/0.4 ML SYRINGE SQ SCH (06:14)
[2022-09-01] MEDS: Insulin LISPRO 300 UNITS/3 ML VIAL SUBQ SCH ×4 (07:24→20:13)
[2022-09-01] MEDS: Budesonide Neb 0.5 MG/2 ML IH SCH ×2 (07:45→19:58)
[2022-09-01] MEDS: Furosemide 20 MG/2 ML VIAL IVP SCH (08:24)
[2022-09-01] MEDS: Chlorhexidine Rinse 15 ML MOUTHWASH MM SCH ×2 (08:25→20:14)
[2022-09-01] MEDS: predniSONE 20 MG TABLET PO SCH (08:25)
[2022-09-01] MEDS: Aspirin 81 MG TAB.CHEW PO SCH (08:25)
[2022-09-01] MEDS: Metoprolol XL (24 HR) Succ 25 MG TAB.ER.24H PO SCH (08:25)
[2022-09-01] MEDS: Nicotine 21 MG PATCH.TD24 TD SCH (08:26)
[2022-09-01 08:44] LABS: Basophils % 0.1 %; Eosinophils % 0.1 %; Hematocrit 36.9 % (37.5-50.1); Hemoglobin 12.1 g/dL (12.9-16.9); Immature Granulocytes % 0.4 % (0-4); Lymphocytes % 6.2 %; Mean Corpuscular HGB Conc 32.8 g/dL (31.6-35.5); Mean Corpuscular Volume 91.3 fL (83.0-100.0); Mean Platelet Volume 10.6 fL (9.4-12.4); Monocytes # 2.1 K/mcL (0.0-1.3); Monocytes % 12.3 %; Neutrophils # 13.6 K/mcL (1.6-8.9); Platelet Count 178 K/mcL (140-400); Red Blood Count 4.04 M/mcL (4.19-5.50); Red Cell Distribution Width 14.1 % (11.5-14.5); Segmented Neutrophils % 80.9 %; White Blood Count 16.9 K/mcL (4.3-11.1)
[2022-09-01] MEDS ORDERED: *HR* Amiodarone 200 MG TABLET PO SCH ×2 (09:00→21:00)
[2022-09-01] MEDS: Metoprolol XL (24 HR) Succ 50 MG TAB.ER.24H PO SCH ×2 (12:33→20:13)
[2022-09-01] MEDS: *HR* Amiodarone 200 MG TABLET PO SCH ×2 (12:58→20:13)
[2022-09-01 19:06] LABS: Bilirubin,Urine Negative (Negative); Blood,Urine Small (Negative); Clarity,Urine Clear (Clear); Color,Urine Light-Yellow (Yellow); Glucose,Urine (UA) Normal (Normal); Hyaline Casts,Urine Few per lpf (None Seen); Ketones,Urine Negative (Negative); Leukocyte Esterase,Urine Negative (Negative); Mucus,Urine Few per lpf (None-Few); Nitrite,Urine Negative (Negative); Protein,Urine Trace mg/dL (Neg-Trace); RBC,Urine 0-3 per hpf (0-3); Specific Gravity,Urine 1.017 (1.010-1.025); Urobilinogen,Urine Normal (Normal); WBC,Urine 0-3 per hpf (0-3)
[2022-09-01 19:15] LABS: Sodium, Urine < 10.0 mEq/L
[2022-09-02] MEDS: Ipratropium/Albuterol Neb 3 ML IH SCH ×7 (00:17→23:35)
[2022-09-02 01:14] LABS: Basophils % 0.1 %; Hematocrit 35.3 % (37.5-50.1); Hemoglobin 11.5 g/dL (12.9-16.9); Immature Granulocytes % 0.4 % (0-4); Lymphocytes # 0.8 K/mcL (0.6-4.6); Mean Corpuscular HGB Conc 32.6 g/dL (31.6-35.5); Mean Corpuscular Hemoglobin 29.6 pg (28.0-33.3); Mean Platelet Volume 10.5 fL (9.4-12.4); Monocytes # 1.5 K/mcL (0.0-1.3); Monocytes % 11.4 %; Neutrophils # 10.6 K/mcL (1.6-8.9); Platelet Count 196 K/mcL (140-400); Red Blood Count 3.88 M/mcL (4.19-5.50); Segmented Neutrophils % 82.1 %; White Blood Count 12.9 K/mcL (4.3-11.1)
[2022-09-02 01:33] LABS: Calcium 9.7 mg/dL (8.6-10.3); Magnesium 2.1 mg/dL (1.6-2.6); Potassium 4.8 mEq/L (3.5-5.1)
[2022-09-02] MEDS: *HR* Enoxaparin 40 MG/0.4 ML SYRINGE SQ SCH (04:39)
[2022-09-02] MEDS: Budesonide Neb 0.5 MG/2 ML IH SCH ×2 (07:45→20:16)
[2022-09-02] MEDS: Aspirin 81 MG TAB.CHEW PO SCH (07:54)
[2022-09-02] MEDS: Chlorhexidine Rinse 15 ML MOUTHWASH MM SCH ×2 (07:54→20:59)
[2022-09-02] MEDS: predniSONE 20 MG TABLET PO SCH (07:54)
[2022-09-02] MEDS: Metoprolol XL (24 HR) Succ 50 MG TAB.ER.24H PO SCH ×2 (07:54→20:56)
[2022-09-02] MEDS: Nicotine 21 MG PATCH.TD24 TD SCH (07:54)
[2022-09-02] MEDS: *HR* Amiodarone 200 MG TABLET PO SCH ×2 (07:54→20:56)
[2022-09-02] MEDS: Insulin LISPRO 300 UNITS/3 ML VIAL SUBQ SCH ×4 (07:55→20:57)
[2022-09-02] MEDS ORDERED: Metoprolol XL (24 HR) Succ 25 MG TAB.ER.24H PO ONE (11:45)
[2022-09-02 12:59] LABS: Phosphorous 3.7 mg/dL (2.7-4.5); Uric Acid 9.1 mg/dL (2.3-7.6)
[2022-09-02] MEDS ORDERED: Warfarin perPT PO PRN (13:08)
[2022-09-02] MEDS ORDERED: Heparin 25,000UNIT/250ML 1/2NS 25,000 UNIT/250 ML IV.SOLN IVC SCH (13:15)
[2022-09-02] MEDS ORDERED: *HR* Heparin 5,000 UNIT/ML VIAL IVP PRN ×2 (13:19)
[2022-09-02 13:24] LABS: Hemoglobin 11.3 g/dL (12.9-16.9); Mean Corpuscular HGB Conc 32.3 g/dL (31.6-35.5); Mean Corpuscular Hemoglobin 29.5 pg (28.0-33.3); Mean Corpuscular Volume 91.4 fL (83.0-100.0); Mean Platelet Volume 10.1 fL (9.4-12.4); Platelet Count 205 K/mcL (140-400); Red Blood Count 3.83 M/mcL (4.19-5.50); White Blood Count 10.4 K/mcL (4.3-11.1)
[2022-09-02 13:39] LABS: Heparin anti-factor XA UFH < 0.04 IU/mL (0.30-0.70); INR 1.2; Prothrombin Time 12.9 Seconds (9.4-12.1)
[2022-09-02 13:43] LABS: Protein/Creatinine Ratio,Urine 0.3 mg/mg (0.00-0.20)
[2022-09-02] MEDS: Heparin 25,000UNIT/250ML 1/2NS 25,000 UNIT/250 ML IV.SOLN IVC SCH (14:07)
[2022-09-02] MEDS ORDERED: *HR* Metoprolol 5 MG/5 ML VIAL IVP PRN (15:08)
[2022-09-02] MEDS ORDERED: *HR* Warfarin 5 MG TABLET PO ONE (18:00)
[2022-09-02] MEDS ORDERED: *HR* Metoprolol 5 MG/5 ML VIAL IVP ONE (23:23)
[2022-09-03 03:19] LABS: Basophils % 0.3 %; Eosinophils % 0.1 %; Hematocrit 38.1 % (37.5-50.1); Hemoglobin 12.2 g/dL (12.9-16.9); Immature Granulocytes % 0.7 % (0-4); Lymphocytes # 1.3 K/mcL (0.6-4.6); Lymphocytes % 11.2 %; Mean Corpuscular Hemoglobin 29.5 pg (28.0-33.3); Mean Corpuscular Volume 92.3 fL (83.0-100.0); Mean Platelet Volume 10.6 fL (9.4-12.4); Monocytes # 1.7 K/mcL (0.0-1.3); Monocytes % 13.8 %; Neutrophils # 8.8 K/mcL (1.6-8.9); Platelet Count 261 K/mcL (140-400); Red Blood Count 4.13 M/mcL (4.19-5.50); Red Cell Distribution Width 13.9 % (11.5-14.5); Segmented Neutrophils % 73.9 %
[2022-09-03 03:37] LABS: Albumin 3.6 g/dL (3.5-5.7); Calcium 9.7 mg/dL (8.6-10.3); Magnesium 2.1 mg/dL (1.6-2.6); Phosphorous 4.3 mg/dL (2.7-4.5); Potassium 4.9 mEq/L (3.5-5.1)
[2022-09-03] MEDS: Ipratropium/Albuterol Neb 3 ML IH SCH ×6 (04:06→23:44)
[2022-09-03] MEDS: Heparin 25,000UNIT/250ML 1/2NS 25,000 UNIT/250 ML IV.SOLN IVC SCH ×2 (04:40→18:34)
[2022-09-03] MEDS: Budesonide Neb 0.5 MG/2 ML IH SCH ×2 (07:21→20:22)
[2022-09-03] MEDS: 3% Sodium Chloride Inhalation 4 ML VIAL.NEB IH SCH ×4 (07:23→20:22)
[2022-09-03] MEDS: Metoprolol XL (24 HR) Succ 50 MG TAB.ER.24H PO SCH ×2 (07:51→19:45)
[2022-09-03] MEDS: Aspirin 81 MG TAB.CHEW PO SCH (07:51)
[2022-09-03] MEDS: predniSONE 20 MG TABLET PO SCH (07:51)
[2022-09-03] MEDS: *HR* Amiodarone 200 MG TABLET PO SCH ×2 (07:52→19:46)
[2022-09-03] MEDS: Nicotine 21 MG PATCH.TD24 TD SCH (07:53)
[2022-09-03] MEDS: Insulin LISPRO 300 UNITS/3 ML VIAL SUBQ SCH (07:54)
[2022-09-03] MEDS: Chlorhexidine Rinse 15 ML MOUTHWASH MM SCH ×2 (07:55→19:46)
[2022-09-03 10:22] LABS: INR 1.4; Prothrombin Time 15.5 Seconds (9.4-12.1)
[2022-09-03] MEDS ORDERED: Metoprolol XL (24 HR) Succ 25 MG TAB.ER.24H PO ONE (11:31)
[2022-09-03] MEDS: *HR* OxyCODONE/APAP 5/325 TABLET PO PRN ×2 (12:29→19:46)
[2022-09-03] MEDS ORDERED: *HR* Warfarin 5 MG TABLET PO ONE (18:00)
[2022-09-04 02:03] LABS: Basophils % 0.3 %; Eosinophils % 0.3 %; Hematocrit 37.1 % (37.5-50.1); Hemoglobin 11.9 g/dL (12.9-16.9); Immature Granulocytes % 1.1 % (0-4); Lymphocytes # 1.3 K/mcL (0.6-4.6); Lymphocytes % 12.5 %; Mean Corpuscular HGB Conc 32.1 g/dL (31.6-35.5); Mean Corpuscular Hemoglobin 29.3 pg (28.0-33.3); Mean Corpuscular Volume 91.4 fL (83.0-100.0); Mean Platelet Volume 10.1 fL (9.4-12.4); Monocytes # 1.6 K/mcL (0.0-1.3); Monocytes % 14.6 %; Neutrophils # 7.6 K/mcL (1.6-8.9); Platelet Count 281 K/mcL (140-400); Red Blood Count 4.06 M/mcL (4.19-5.50); Red Cell Distribution Width 13.9 % (11.5-14.5); Segmented Neutrophils % 71.2 %; White Blood Count 10.7 K/mcL (4.3-11.1)
[2022-09-04 02:12] LABS: INR 1.7; Prothrombin Time 18.6 Seconds (9.4-12.1)
[2022-09-04 02:23] LABS: Calcium 9.6 mg/dL (8.6-10.3); Potassium 4.9 mEq/L (3.5-5.1)
[2022-09-04] MEDS: 3% Sodium Chloride Inhalation 4 ML VIAL.NEB IH SCH ×4 (03:51→20:01)
[2022-09-04] MEDS: Ipratropium/Albuterol Neb 3 ML IH SCH ×6 (03:52→23:19)
[2022-09-04] MEDS: *HR* Amiodarone 200 MG TABLET PO SCH ×2 (09:46→20:08)
[2022-09-04] MEDS: predniSONE 20 MG TABLET PO SCH (09:46)
[2022-09-04] MEDS: Aspirin 81 MG TAB.CHEW PO SCH (09:46)
[2022-09-04] MEDS: Metoprolol XL (24 HR) Succ 50 MG TAB.ER.24H PO SCH ×2 (09:47→20:08)
[2022-09-04] MEDS: Chlorhexidine Rinse 15 ML MOUTHWASH MM SCH ×2 (11:16→20:30)
[2022-09-04] MEDS: Nicotine 21 MG PATCH.TD24 TD SCH (11:16)
[2022-09-04] MEDS: Budesonide Neb 0.5 MG/2 ML IH SCH ×2 (11:42→20:02)
[2022-09-04 13:40] LABS: Heparin anti-factor XA UFH < 0.04 IU/mL (0.30-0.70); INR 2.3; Prothrombin Time 25.1 Seconds (9.4-12.1)
[2022-09-04] MEDS: Heparin 25,000UNIT/250ML 1/2NS 25,000 UNIT/250 ML IV.SOLN IVC SCH (14:30)
[2022-09-04] MEDS ORDERED: Orphenadrine 60 MG/2 ML VIAL IVP PRN (17:15)
[2022-09-04] MEDS ORDERED: *HR* Warfarin 5 MG TABLET PO ONE (18:00)
[2022-09-04] MEDS: *HR* OxyCODONE/APAP 5/325 TABLET PO PRN (22:51)
[2022-09-05 03:47] LABS: Basophils % 0.4 %; Eosinophils % 0.2 %; Hematocrit 36.3 % (37.5-50.1); Hemoglobin 11.7 g/dL (12.9-16.9); Immature Granulocytes % 1.1 % (0-4); Lymphocytes # 1.3 K/mcL (0.6-4.6); Lymphocytes % 11.1 %; Mean Corpuscular HGB Conc 32.2 g/dL (31.6-35.5); Mean Corpuscular Hemoglobin 29.3 pg (28.0-33.3); Mean Platelet Volume 10.5 fL (9.4-12.4); Monocytes # 1.3 K/mcL (0.0-1.3); Neutrophils # 8.6 K/mcL (1.6-8.9); Platelet Count 300 K/mcL (140-400); Red Blood Count 3.99 M/mcL (4.19-5.50); Red Cell Distribution Width 13.5 % (11.5-14.5); Segmented Neutrophils % 76.2 %; White Blood Count 11.3 K/mcL (4.3-11.1)
[2022-09-05 03:50] LABS: Heparin anti-factor XA UFH 0.74 IU/mL (0.30-0.70); INR 3.1
[2022-09-05 04:05] LABS: Magnesium 1.9 mg/dL (1.6-2.6); Potassium 4.9 mEq/L (3.5-5.1)
[2022-09-05] MEDS: Heparin 25,000UNIT/250ML 1/2NS 25,000 UNIT/250 ML IV.SOLN IVC SCH (04:14)
[2022-09-05] MEDS: 3% Sodium Chloride Inhalation 4 ML VIAL.NEB IH SCH ×2 (04:28→11:27)
[2022-09-05] MEDS: Ipratropium/Albuterol Neb 3 ML IH SCH ×3 (04:28→11:27)
[2022-09-05] MEDS: Budesonide Neb 0.5 MG/2 ML IH SCH (07:32)
[2022-09-05 07:37] VITALS: BP 132/69; TEMP 98.2
[2022-09-05] MEDS: *HR* Amiodarone 200 MG TABLET PO SCH (08:07)
[2022-09-05] MEDS: Metoprolol XL (24 HR) Succ 50 MG TAB.ER.24H PO SCH (08:07)
[2022-09-05] MEDS: Aspirin 81 MG TAB.CHEW PO SCH (08:08)
[2022-09-05] MEDS: Chlorhexidine Rinse 15 ML MOUTHWASH MM SCH (08:08)
[2022-09-05] MEDS: Nicotine 21 MG PATCH.TD24 TD SCH (08:08)
[2022-09-05] MEDS: predniSONE 20 MG TABLET PO SCH (08:08)
[2022-09-05 09:38] VITALS: O2SAT 94
[2022-09-05 11:25] VITALS: PULSE 102
[2022-09-05] MEDS: *HR* OxyCODONE/APAP 5/325 TABLET PO PRN (12:57)
[2022-09-06] MEDS ORDERED: predniSONE 10 MG TABLET PO SCH (09:00)
== END 2022-09-05 14:03 | disposition home health service (06) | DRG 233 ==
LOC: 2NENU → SUATTDRO 17:03 → ICNU 08-28 15:55 → 2NNU 08-31 15:48
PROVIDERS: ADMIT Hospitalist; ATTEND Internal Medicine